=== PATIENT | female | born 1995 | race Caucasian/White ===

== ENCOUNTER 2020-02-09 13:49 | Outpatient (CLI) | payer OTHER, SELFPAY ==
[2020-02-09 14:36] LABS: Basophils Absolute Auto 0.1 K/mm3 (0.0-0.1); Basophils Percent Auto 1.1 % (0.2-1.2); Eosinophils Absolute Auto 0.5 K/mm3 (0-0.3); Hemoglobin 15.3 g/dL (12.0-15.0); Immature Granulocyte Absolute 0.01 K/mm3 (0.00-0.031); Immature Granulocyte Percent A 0.2 % (0-0.5); Lymphocytes Absolute Auto 2.59 K/mm3 (0.9-3.2); Lymphocytes Percent Auto 39.6 % (18.3-44.2); Mean Corpuscular Hemoglobin 30.9 pg (26-34); Mean Corpuscular Volume 90.9 fl (80-100); Monocytes Absolute Auto 0.4 K/mm3 (0.1-0.6); Monocytes Percent Auto 6.4 % (2.6-8.5); Neutrophils Percent Auto 45.7 % (45.5-73.1); Platelet Count Result 323 k/mm3 (150-375); Red Blood Count 4.95 M/mm3 (4.2-5.4); Red Cell Distribution Width 13.1 % (11.5-14.5); White Blood Count 6.5 K/mm3 (4.5-10.0)
[2020-02-09 15:41] LABS: Free T4 Free Thyroxine 1.06 ng/mL (0.78-2.19); Vitamin D 25 Hydroxy 30.4 ng/mL
[2020-02-09 16:23] LABS: Hemoglobin A1C 5.4 % (<5.7)
[2020-02-12 11:58] LABS: DHEA-Sulfate 62 mcg/dL (18-391)
[2020-02-13 11:57] LABS: Testosterone Free 8.7 pg/mL (0.1-6.4); Testosterone Total 54 ng/dL (2-45)
[2020-02-13 19:50] LABS: LH 22.3 mIU/mL (***); Progesterone 0.3 ng/mL (***); Prolactin 8.5 ng/mL (***)
[2020-02-15 02:48] LABS: FSH 9.3 mIU/mL (***)
== END 2020-02-09 13:50 | disposition home or self-care (01) ==
PROVIDERS: Visit Provider Nurse Practitioner Women's Health
DX: N91.5 Oligomenorrhea, unspecified (principal); Z01.419 Encounter for gynecological examination (general) (routine) without abnormal findings
CPT/HCPCS: 36415; 82306; 82627; 83001; 83002; 83036; 83525; 84144; 84146; 84402; 84403; 84439; 84443; 85025

== ENCOUNTER 2020-12-25 12:18 | Outpatient (CLI) | payer OTHER, SELFPAY ==
--- NOTE | 2020-12-28 13:38 | WPDPFTINT ---
PFT Interpretation This PFT met all criteria for ATS standards and reproducibility FEV/FVC post bronchodilator 77% FEV1 83% FVC 94% TLC 94% RV 98% RV/TLC 26% DLCO 81% when adjusted for alveolar volume but not adjusted for hemoglobin Flow volume loops were normal Impression: Normal PFT. Clinical correlation is advised. PFT Procedure Performed PFT Procedure Performed Spirometry with Pre/Post Bronchodilator Plethysmography (Lung Vol) Diffusing Cap (DLCO) Flow Vol Loop
== END 2020-12-25 12:19 | disposition home or self-care (01) ==
DX: R06.02 Shortness of breath (principal)
CPT/HCPCS: 94060; 94726; 94729

== ENCOUNTER 2021-11-28 12:04 | Outpatient (CLI) | payer OTHER, SELFPAY ==
--- NOTE | ~2021-11-28 | XR_ITS ---
XR chest 2V DATE: 11/28/2021 12:20 INDICATION: Cough, shortness of breath, dyspnea TECHNIQUE: PA and lateral views COMPARISON: 03/25/2019 PA chest FINDINGS: Normal heart size. No hilar or mediastinal enlargement. No pulmonary infiltrate or consolid ation, pleural effusion or pulmonary vascular congestion or pneumothorax. IMPRESSION: No active cardiopulmonary disease Reviewed, dictated and finalized at location A.
== END 2021-11-28 12:05 | disposition home or self-care (01) ==
PROVIDERS: Visit Provider Allergy & Immunology
DX: R05.9 Cough, unspecified (principal)
CPT/HCPCS: 71046

== ENCOUNTER 2022-07-24 12:45 | Outpatient (CLI) | payer OTHER, SELFPAY | END 2022-07-24 12:46 | disposition home or self-care (01) | LOC: ANHAUDIO 12:46 | PROVIDERS: Visit Provider Otolaryngology | DX: H90.3 Sensorineural hearing loss, bilateral (principal) | CPT/HCPCS: 92557; 92567 ==